=== PATIENT | male | born 1980 | race Caucasian/White ===

== ENCOUNTER 2022-09-01 11:15 | Emergency (ER) | payer OTHER ==
[~2022-09-01] VITALS: Ht 188 cm; Wt 154.2 kg
[2022-09-01 13:31] LABS: BASOPHILS ABSOLUTE AUTO 0.04 K/mm3 (0.00-0.23); BASOPHILS PERCENT AUTO 1 % (0-2); EOSINOPHILS ABSOLUTE AUTO 0.54 K/mm3 (0.00-0.68); EOSINOPHILS PERCENT AUTO 7 % (0-6); Hematocrit 41.4 % (37.0-53.0); Hemoglobin 13.9 g/dL (13.5-17.5); IMMATURE GRAN ABSOLUTE AUTO 0.03 K/mm3 (0.00-0.10); IMMATURE GRAN PERCENT AUTO 0 % (0-1); LYMPHOCYTES ABSOLUTE AUTO 2.19 K/mm3 (0.84-5.20); LYMPHOCYTES PERCENT AUTO 28 % (21-46); MONOCYTES ABSOLUTE AUTO 0.83 K/mm3 (0.16-1.47); MONOCYTES PERCENT AUTO 10 % (4-13); Mean Corpuscular HGB 28.5 pg (26.0-34.0); Mean Corpuscular HGB Conc 33.6 g/dL (31.5-36.5); Mean Corpuscular Volume 85 fL (80-100); Mean Platelet Volume 9.5 fL (9.1-12.4); NEUTROPHILS ABSOLUTE AUTO 4.32 K/mm3 (1.96-9.15); NEUTROPHILS PERCENT AUTO 54 % (41-73); Platelet Count 271 K/mm3 (150-400); RDW Coefficient Variation 13.3 % (11.7-14.2); RDW Standard Deviation 41.1 fL (35.1-46.3); Red Blood Cell Count 4.88 M/mm3 (4.30-5.90); White Blood Cell Count 7.95 K/mm3 (4.00-11.30)
[2022-09-01] MEDS ORDERED: HYDR1TAB94 PO (14:33)
== END 2022-09-01 14:53 | disposition home or self-care (01) ==
LOC: ER 11:15
PROVIDERS: Emergency Medicine
DX: R10.13 Epigastric pain (principal); F17.210 Nicotine dependence, cigarettes, uncomplicated
CPT/HCPCS: 74177; 83690; 85025; J2270; Q9967

== ENCOUNTER 2023-12-13 15:03 | Inpatient (IN) | payer OTHER ==
[~2023-12-13] VITALS: Ht 182.9 cm; Wt 176.0 kg
[~2023-12-13 15:03] MED LIST: HYDR1TAB94 PO
[2023-12-13 15:42] LABS: BASOPHILS ABSOLUTE AUTO 0.05 K/mm3 (0.00-0.23); BASOPHILS PERCENT AUTO 0 % (0-2); EOSINOPHILS ABSOLUTE AUTO 0.53 K/mm3 (0.00-0.68); EOSINOPHILS PERCENT AUTO 5 % (0-6); Hemoglobin 11.3 g/dL (13.5-17.5); IMMATURE GRAN ABSOLUTE AUTO 0.05 K/mm3 (0.00-0.10); IMMATURE GRAN PERCENT AUTO 0 % (0-1); LYMPHOCYTES ABSOLUTE AUTO 1.96 K/mm3 (0.84-5.20); LYMPHOCYTES PERCENT AUTO 18 % (21-46); MONOCYTES ABSOLUTE AUTO 1.03 K/mm3 (0.16-1.47); MONOCYTES PERCENT AUTO 9 % (4-13); Mean Corpuscular HGB 24.9 pg (26.0-34.0); Mean Corpuscular HGB Conc 31.4 g/dL (31.5-36.5); Mean Corpuscular Volume 79 fL (80-100); Mean Platelet Volume 9.2 fL (9.1-12.4); NEUTROPHILS ABSOLUTE AUTO 7.61 K/mm3 (1.96-9.15); NEUTROPHILS PERCENT AUTO 68 % (41-73); Platelet Count 324 K/mm3 (150-400); RDW Coefficient Variation 15.1 % (11.7-14.2); RDW Standard Deviation 43.5 fL (35.1-46.3); Red Blood Cell Count 4.54 M/mm3 (4.30-5.90); White Blood Cell Count 11.23 K/mm3 (4.00-11.30)
[2023-12-13 16:02] LABS: Albumin, Blood 3.3 g/dL (3.4-5.0); Albumin/Globulin Ratio 0.7 (0.8-1.8); Bilirubin, Total 0.3 mg/dL (0.1-1.0); Bun/Creatinine Ratio 13.3 (12.0-20.0); Calcium, Blood 8.4 mg/dL (8.5-10.1); Creatinine, Blood 0.9 mg/dL (0.60-1.20); Globulin, Blood 4.5 g/dL (2.2-4.0); Potassium, Blood 3.9 mmol/L (3.5-5.5); Total Protein, Blood 7.8 g/dL (6.4-8.2)
[2023-12-13] MEDS ORDERED: Acetaminophen 325 MG TABLET PO ONE (18:15)
[2023-12-13 20:25] LABS: Influenza A, PCR NEGATIVE (NEGATIVE); Influenza B, PCR NEGATIVE (NEGATIVE); Resp Syncytial Virus, PCR NEGATIVE (NEGATIVE); SARS-Cov-2 (COVID-19) PCR, MMC NEGATIVE (NEGATIVE)
[2023-12-13] MEDS ORDERED: ALBUTEROL HFA 90 MCG (21:24)
[2023-12-13] MEDS ORDERED: Acetaminophen 325 MG TABLET PO PRN (21:25)
[2023-12-13] MEDS ORDERED: Albuterol 2.5 MG/3 ML VIAL INH PRN (21:30)
[2023-12-13] MEDS ORDERED: HYDROcodone 5-APAP 325 TAB PO PRN (21:30)
[2023-12-13] MEDS ORDERED: Ondansetron HCl 2 MG / ML 2ML Vial IV PRN (21:30)
[2023-12-13] MEDS ORDERED: HYDROcodone 5-APAP 325 TAB PO ONE (22:00)
[2023-12-13] MEDS ORDERED: Furosemide 10 MG/ML 4ML Vial IV SCH (22:00)
[2023-12-13] MEDS ORDERED: ALBU90OI INH (22:01)
[2023-12-13 22:33] LABS: Thyroid Stimulating Hormone 1.49 uIU/mL (0.360-4.800)
[2023-12-13 22:51] VITALS: BP 149/111
[2023-12-13 22:57] LABS: Adenovirus Not Detected (NOT DETECT); Bordetella pertussis Not Detected (NOT DETECT); Chlamydophila pneumoniae Not Detected (NOT DETECT); Coronavirus 229E Not Detected (NOT DETECT); Coronavirus HKU1 Not Detected (NOT DETECT); Coronavirus NL63 Not Detected (NOT DETECT); Coronavirus OC43 Not Detected (NOT DETECT); Human Metapneumovirus Not Detected (NOT DETECT); Human Rhinovirus/Enterovirus Not Detected (NOT DETECT); Influenza A/2009-H1 Not Detected (NOT DETECT); Influenza A/H1 Not Detected (NOT DETECT); Influenza A/H3 Not Detected (NOT DETECT); Influenza B Not Detected (NOT DETECT); Mycoplasma pneumoniae Not Detected (NOT DETECT); Parainfluenza Virus 1 Not Detected (NOT DETECT); Parainfluenza Virus 2 Not Detected (NOT DETECT); Parainfluenza Virus 3 Not Detected (NOT DETECT); Parainfluenza Virus 4 Not Detected (NOT DETECT); Respiratory Syncytial Virus Not Detected (NOT DETECT); SARS-Cov-2 (COVID-19), BioFire Not Detected (NOT DETECT)
[2023-12-14 00:18] LABS: U Amphetamine Screen DETECTED; U Barbituate Screen Not Detected; U Benzodiazapine Screen Not Detected; U Cocaine Screen Not Detected; U Methadone Screen Not Detected; U Methamphetamine Screen DETECTED; U Opiates Screen DETECTED
[2023-12-14 00:19] LABS: U Buprenorphine Screen Not Detected; U Cannabinoids Screen Not Detected; U Oxycodone Screen Not Detected; U Phencyclidine Screen Not Detected
[2023-12-14] MEDS ORDERED: Nicotine 21 MG PATCH TOP PRN (00:40)
[2023-12-14] MEDS ORDERED: FentaNYL Citrate 50 MCG/ML 2 ML Injection IV PRN (00:40)
[2023-12-14] MEDS ORDERED: DEXTROMETHORPHAN/BENZOCAINE 1 EACH LOZENGE MT PRN (00:40)
[2023-12-14 04:08] VITALS: BP 160/92
[2023-12-14 06:58] LABS: Bun/Creatinine Ratio 12.3 (12.0-20.0); Calcium, Blood 8.7 mg/dL (8.5-10.1); Creatinine, Blood 0.81 mg/dL (0.60-1.20); Magnesium, Blood 2.3 mg/dL (1.6-2.4); Potassium, Blood 3.8 mmol/L (3.5-5.5)
[2023-12-14 07:31] VITALS: BP 156/97
--- NOTE | 2023-12-14 07:33 | NUR ---
SHIFT SUMMARY PT ARRIVED TO ROOM 341 FROM ER VIA GURNEY AROUND 2250. PT AMBULATED INDEPENDENTLY TO BR, THEN TO HOSPITAL BED. PT IS A&OX4, PLEASANT AND COOPERATIVE. HTN 149/111, HR 88, AFEBRILE, O2 91% ON 4L NC. ATTEMPTED TO WEAR CPAP, COULD NOT TOLERATE. +3 BLE EDEMA. LORENA BECOMES VERY DYSPNEIC AND TACHYPNEIC WITH ANY EXERTION, EVEN REPOSITIONING IN BED. C/O PAIN IN HIS THROAT, AND CHEST FROM COUGHING. MEDICATED WITH 5MG PO NORCO. ORDERED CEPACOL LOZENGES. PT IS A SMOKER, THIS RN SUGGESTED SMOKING CESSATION, PT IS WANTING TO, NICOTINE PATCH ORDERED FOR MORNING. PT IS INDEPENDENT TO BR. VOIDING LARGE AMOUNTS OF CLEAR, LIGHT YELLOW URINE. NO BM THIS SHIFT. ORIENTED PT TO ROOM AND CALL LIGHT. BED IN LOWEST POSITION, CALL LIGHT WITHIN REACH.
[2023-12-14] MEDS ORDERED: Enoxaparin 40 MG/0.4 ML SYR SC SCH (09:00)
[2023-12-14 10:19] LABS: Percent Saturation 6.3 % (20.0-50.0)
[2023-12-14] MEDS ORDERED: Furosemide 10 MG/ML 4ML Vial IV SCH (10:40)
[2023-12-14] MEDS ORDERED: Saline Nasal Spray 45 ML PRN (10:50)
--- NOTE | 2023-12-14 10:52 | NUR ---
dr dai rounded, tele nsr 80-90, easily sob and desats, waiting for home cpap to be brought in
[2023-12-14] MEDS ORDERED: Fluticasone 0.05% Nasal Spray SCH (11:00)
[2023-12-14] MEDS ORDERED: Ferrous Sulfate 325 MG Tab PO SCH (13:00)
[2023-12-14] MEDS ORDERED: Lidocaine 2% Viscous Soln 20 ML,Nystatin 100,000 Unit/ml Susp 20 ML,Mag Hydrox/Al Hydro... MT PRN (13:05)
[2023-12-14 13:50] LABS: Bicarbonate Venous 30.1 mmol/L (24.0-30.0); PCO2 Venous 44 mmHg (38-42); pH Blood Venous 7.46 (7.34-7.37)
[2023-12-14 13:51] LABS: Base Excess Venous 7.1 mmol/L
[2023-12-14 14:01] LABS: BASOPHILS ABSOLUTE AUTO 0.05 K/mm3 (0.00-0.23); BASOPHILS PERCENT AUTO 1 % (0-2); EOSINOPHILS ABSOLUTE AUTO 0.46 K/mm3 (0.00-0.68); EOSINOPHILS PERCENT AUTO 5 % (0-6); Hemoglobin 12.2 g/dL (13.5-17.5); IMMATURE GRAN ABSOLUTE AUTO 0.08 K/mm3 (0.00-0.10); IMMATURE GRAN PERCENT AUTO 1 % (0-1); LYMPHOCYTES ABSOLUTE AUTO 1.66 K/mm3 (0.84-5.20); LYMPHOCYTES PERCENT AUTO 16 % (21-46); MONOCYTES ABSOLUTE AUTO 0.59 K/mm3 (0.16-1.47); MONOCYTES PERCENT AUTO 6 % (4-13); Mean Corpuscular HGB 24.7 pg (26.0-34.0); Mean Corpuscular HGB Conc 31.3 g/dL (31.5-36.5); Mean Corpuscular Volume 79 fL (80-100); Mean Platelet Volume 9.1 fL (9.1-12.4); NEUTROPHILS ABSOLUTE AUTO 7.41 K/mm3 (1.96-9.15); NEUTROPHILS PERCENT AUTO 72 % (41-73); Platelet Count 317 K/mm3 (150-400); RDW Coefficient Variation 15.1 % (11.7-14.2); RDW Standard Deviation 42.5 fL (35.1-46.3); Red Blood Cell Count 4.94 M/mm3 (4.30-5.90); White Blood Cell Count 10.25 K/mm3 (4.00-11.30)
[2023-12-14 15:30] VITALS: BP 170/84
--- NOTE | 2023-12-14 16:39 | NUR ---
NO ACUTE CHANGES, CLEARLY MAKES NEEDS KNOWN, GIRLFRIEND TO BRING CPAP IN, ECHO, VENOUS DUPLEX, DONE TODAY. SOB INCREASES WITH EXCERTION, RECOVERING FROM DESATING TO THE BATHROOM IMPROVED THIS AFTER NOON, HTN, CALL LIGHT WITH IN REACH, WILL RELAY TO PM RN
[2023-12-14 19:58] VITALS: BP 165/83
[2023-12-14] MEDS ORDERED: Sennosides 8.6 MG Tab PO SCH (21:00)
[2023-12-15 03:04] VITALS: BP 172/87
--- NOTE | 2023-12-15 06:14 | NUR ---
SHIFT SUMMARY PT IS A&OX4, PLEASANT AND COOPERATIVE. VSS, HTN, ON 4L NC, HOME CPAP WITH 7L BLEED IN WHILE ASLEEP. +3 BLE EDEMA. LORENA BECOMES VERY DYSPNEIC AND TACHYPNEIC WITH ANY EXERTION, SLEPT IN RECLINER T/O NOC. C/O PAIN IN HIS THROAT, AND CHEST FROM COUGHING. MEDICATED WITH 5MG PO NORCO AND CEPACOL LOZENGES. PT IS INDEPENDENT TO BR. VOIDING LARGE AMOUNTS OF CLEAR, LIGHT YELLOW URINE. NO BM THIS SHIFT, PT FEELS CONSTIPATED. CALL LIGHT WITHIN REACH.
[2023-12-15 07:25] LABS: BASOPHILS ABSOLUTE AUTO 0.05 K/mm3 (0.00-0.23); BASOPHILS PERCENT AUTO 1 % (0-2); EOSINOPHILS ABSOLUTE AUTO 0.41 K/mm3 (0.00-0.68); EOSINOPHILS PERCENT AUTO 4 % (0-6); Hematocrit 38.4 % (37.0-53.0); IMMATURE GRAN ABSOLUTE AUTO 0.05 K/mm3 (0.00-0.10); IMMATURE GRAN PERCENT AUTO 1 % (0-1); LYMPHOCYTES PERCENT AUTO 18 % (21-46); MONOCYTES ABSOLUTE AUTO 0.76 K/mm3 (0.16-1.47); MONOCYTES PERCENT AUTO 8 % (4-13); Mean Corpuscular HGB 24.9 pg (26.0-34.0); Mean Corpuscular HGB Conc 31.3 g/dL (31.5-36.5); Mean Corpuscular Volume 80 fL (80-100); Mean Platelet Volume 8.9 fL (9.1-12.4); NEUTROPHILS ABSOLUTE AUTO 7.09 K/mm3 (1.96-9.15); NEUTROPHILS PERCENT AUTO 70 % (41-73); Platelet Count 331 K/mm3 (150-400); RDW Coefficient Variation 15.1 % (11.7-14.2); RDW Standard Deviation 43.6 fL (35.1-46.3); Red Blood Cell Count 4.82 M/mm3 (4.30-5.90); White Blood Cell Count 10.16 K/mm3 (4.00-11.30)
[2023-12-15 07:32] VITALS: BP 153/89
[2023-12-15] MEDS ORDERED: HydrALAZINE HCl 20 MG / ML 1ML Vial IV PRN (07:40)
[2023-12-15 07:56] LABS: Albumin, Blood 3.3 g/dL (3.4-5.0); Albumin/Globulin Ratio 0.7 (0.8-1.8); Bilirubin, Total 0.4 mg/dL (0.1-1.0); Bun/Creatinine Ratio 12.2 (12.0-20.0); Calcium, Blood 8.5 mg/dL (8.5-10.1); Creatinine, Blood 0.91 mg/dL (0.60-1.20); Globulin, Blood 4.5 g/dL (2.2-4.0); Total Protein, Blood 7.8 g/dL (6.4-8.2)
[2023-12-15] MEDS ORDERED: Losartan Potassium 25 MG Tab PO SCH ×2 (08:00→09:00)
[2023-12-15] MEDS ORDERED: Furosemide 10 MG/ML 4ML Vial IV SCH (09:00)
[2023-12-15] MEDS ORDERED: Vancomycin HCL 2,500 MG in NS 500 ML IV ONE (14:25)
--- NOTE | 2023-12-15 16:30 | NUR ---
SHIFT SUMMARY: PT IS A&OX4/SBA-INDEPENDENT IN THE ROOM, CALLS APPROPRIATELY. HIS BLOOD CULTURE CAME BACK POSITIVE TODAY AND WAS STARTED ON IV ANTIBIOTIC THERAPY. HE C/O BILATERAL LOWE EXT PAIN; L MORE THAN R. HE ISN'T COMPLIANT WITH CPAP; MAINTAINS APPROPRIATE O2 SATURATION ON 4 L N/C; EVEN WHILE SLEEPING. HE IS CURRENTLY AT 960 ML FOR HIS FLUIDS. PATIENT EATING CANDY, ICE CREAM, AND DRINKING SODA. HE IS VOIDING, HASN'T HAD A BOWEL MOVEMENT. HE IS CURRENT IN BED; HIGH RODRIGUEZ'S POSITION; SNORING AND O2% AT 90%. CALL LIGHT WITHIN REACH, NO SIGNS OR SYMPTOMS OF DISTRESS, PLAN OF CARE ONGOING.
--- NOTE | 2023-12-15 17:25 | NUR ---
CELIA FROM TELEMETRY CALLED REPORTING THAT PATIENT'S HR RANGE IS 40-140. NOTIFIED DR. SOLORIO
[2023-12-15 20:47] VITALS: BP 145/68
[2023-12-15] MEDS ORDERED: Vancomycin HCL 1,000 MG in NS 250 ML IV SCH (23:00)
--- NOTE | 2023-12-16 03:55 | NUR ---
SHIFT SUMMARY KIMBERLY, PT ATTEMPTED TO WEAR CPAP BUT COULD NOT TOLERATE, STATES TOO MUCH AIR BEING FORCED IN. PLACED PT ON HIGH FLOW NC AT 7L, MAINTAINGING ABOVE 90% APART FROM PERIODS OF APNEA WHERE HE BRIEFLY DROPS TO 80%. WILL WAKE PT UP AND HE RETURNS TO 90%. PT AMBULATING TO BATHROOM INDEPENDENTLY. SOB WITH EXERTION. HACKING NONPRODUCTIVE COUGH. PRN NORCO GIVEN X2. 2L FLUID RESTRICTION, COMPLIANT. ABLE TO MAKE NEEDS KNOWN. CALL LIGHT IN REACH, BED LOCKED IN LOW POSITION.
[2023-12-16 06:34] VITALS: BP 166/95
[2023-12-16 06:43] LABS: BASOPHILS ABSOLUTE AUTO 0.04 K/mm3 (0.00-0.23); BASOPHILS PERCENT AUTO 0 % (0-2); EOSINOPHILS ABSOLUTE AUTO 0.36 K/mm3 (0.00-0.68); EOSINOPHILS PERCENT AUTO 4 % (0-6); Hemoglobin 13.8 g/dL (13.5-17.5); IMMATURE GRAN ABSOLUTE AUTO 0.05 K/mm3 (0.00-0.10); IMMATURE GRAN PERCENT AUTO 1 % (0-1); LYMPHOCYTES PERCENT AUTO 22 % (21-46); MONOCYTES ABSOLUTE AUTO 0.92 K/mm3 (0.16-1.47); MONOCYTES PERCENT AUTO 9 % (4-13); Mean Corpuscular HGB 24.9 pg (26.0-34.0); Mean Corpuscular HGB Conc 31.4 g/dL (31.5-36.5); Mean Corpuscular Volume 79 fL (80-100); NEUTROPHILS ABSOLUTE AUTO 6.66 K/mm3 (1.96-9.15); NEUTROPHILS PERCENT AUTO 65 % (41-73); Platelet Count 363 K/mm3 (150-400); RDW Coefficient Variation 15.1 % (11.7-14.2); RDW Standard Deviation 43.2 fL (35.1-46.3); Red Blood Cell Count 5.55 M/mm3 (4.30-5.90); White Blood Cell Count 10.23 K/mm3 (4.00-11.30)
[2023-12-16 07:04] LABS: Albumin, Blood 3.6 g/dL (3.4-5.0); Albumin/Globulin Ratio 0.7 (0.8-1.8); Bilirubin, Total 0.5 mg/dL (0.1-1.0); Bun/Creatinine Ratio 14.2 (12.0-20.0); Creatinine, Blood 0.84 mg/dL (0.60-1.20); Globulin, Blood 5.1 g/dL (2.2-4.0); Magnesium, Blood 2.5 mg/dL (1.6-2.4); Phosphorus, Blood 4.4 mg/dL (2.5-4.9); Potassium, Blood 3.9 mmol/L (3.5-5.5); Total Protein, Blood 8.7 g/dL (6.4-8.2)
[2023-12-16 07:38] VITALS: BP 154/82
[2023-12-16] MEDS ORDERED: HyDROXyzine HCl 10 MG Tab PO PRN (12:00)
[2023-12-16 14:56] LABS: Vancomycin, Trough 10.1 ug/mL (5.0-10.0)
[2023-12-16 15:03] VITALS: BP 144/81
[2023-12-16] MEDS ORDERED: Vancomycin HCL 1,250 MG in NS 250 ML IV SCH (16:00)
[2023-12-16] MEDS ORDERED: AcetaZOLAMIDE 250 MG Tab PO ONE (16:00)
--- NOTE | 2023-12-16 17:25 | NUR ---
SHIFT SUMMARY: PT IS A&OX4/INDEPENDENT. HE MAKES HIS NEEDS KNOWN. CONTINUES TO GO FROM ALERT TO DROWSY TO ASLEEP; SNORES; NOT COMPLIANT WITH CPAP; DOES NOT TOLERATE. MAINTAINS O2 SATURATION GREATER THAN 90% WITH HIGH FLOW N/C ON 7 LITERS; IF OXYGEN IS NOT ON WHILE SLEEPING O2% WILL DROP INTO THE 80'S. PATIENT CONTINUES TO C/O PAIN IN BILATERAL EXT/KNEES. HE IS GETTING IV ANTIBIOTICS AND DIURETICS. LOWER EXT SWELLING SLIGHTLY IMPROVED, BUT NOT MUCH. HE SEEMS TO MAINTAIN HIS FLUID RESTRICTION AT 2L. HE IS IN HIS BED, CALL LIGHT WITHIN REACH, FAMILY VISITING, NO SIGNS OR SYMPTOMS OF DISTRESS, PLAN OF CARE ONGOING.
[2023-12-16 20:51] VITALS: BP 149/76
[2023-12-17 05:03] VITALS: BP 128/80
[2023-12-17 07:04] LABS: BASOPHILS ABSOLUTE AUTO 0.04 K/mm3 (0.00-0.23); BASOPHILS PERCENT AUTO 0 % (0-2); EOSINOPHILS ABSOLUTE AUTO 0.34 K/mm3 (0.00-0.68); EOSINOPHILS PERCENT AUTO 4 % (0-6); Hemoglobin 13.3 g/dL (13.5-17.5); IMMATURE GRAN ABSOLUTE AUTO 0.05 K/mm3 (0.00-0.10); IMMATURE GRAN PERCENT AUTO 1 % (0-1); LYMPHOCYTES ABSOLUTE AUTO 1.57 K/mm3 (0.84-5.20); LYMPHOCYTES PERCENT AUTO 18 % (21-46); MONOCYTES ABSOLUTE AUTO 0.83 K/mm3 (0.16-1.47); MONOCYTES PERCENT AUTO 9 % (4-13); Mean Corpuscular HGB 24.8 pg (26.0-34.0); Mean Corpuscular HGB Conc 30.2 g/dL (31.5-36.5); Mean Corpuscular Volume 82 fL (80-100); NEUTROPHILS ABSOLUTE AUTO 6.16 K/mm3 (1.96-9.15); NEUTROPHILS PERCENT AUTO 69 % (41-73); Platelet Count 340 K/mm3 (150-400); RDW Coefficient Variation 14.8 % (11.7-14.2); RDW Standard Deviation 43.9 fL (35.1-46.3); Red Blood Cell Count 5.37 M/mm3 (4.30-5.90); White Blood Cell Count 8.99 K/mm3 (4.00-11.30)
[2023-12-17 07:30] LABS: Albumin, Blood 3.5 g/dL (3.4-5.0); Albumin/Globulin Ratio 0.7 (0.8-1.8); Bilirubin, Total 0.2 mg/dL (0.1-1.0); Bun/Creatinine Ratio 17.2 (12.0-20.0); Creatinine, Blood 0.82 mg/dL (0.60-1.20); Potassium, Blood 4.2 mmol/L (3.5-5.5); Total Protein, Blood 8.5 g/dL (6.4-8.2)
--- NOTE | 2023-12-17 07:35 | NUR ---
SHIFT SUMMARY PT NONCOMPLIANT WITH CPAP. REMAINS ON 7L HF NC WITH CONTINUOUS PULSE OX MONITORING. WILL DESAT TO 80% ON ROOM AIR. COMPLAINTS OF PAIN TO LE/KNEES. NORCO PRN GIVEN X2. COMPLIANT WITH 2L FLUID RESTRICTION. DID HAVE TWO EPISODES OF URINARY URGENCY TO WHERE HE COULD NOT MAKE IT TO THE BATHROOM, EVEN THOUGH A URINAL WAS ALREADY AT BEDSIDE, INSTRUCTED PT TO USE FEMALE URINAL THIS SEEMS TO WORK BETTER WITH HIS ANATOMY AT BEDSIDE. SITTING IN RECLINER T/O NIGHT. CALL LIGHT IN REACH. ABLE TO MAKE NEEDS KNOWN
[2023-12-17 07:39] VITALS: BP 168/93
[2023-12-17] MEDS ORDERED: Furosemide 10 MG/ML 4ML Vial IV SCH (09:00)
[2023-12-17 09:39] LABS: PCO2 Venous 65.4 mmHg (38-42); pH Blood Venous 7.29 (7.34-7.37)
[2023-12-17 09:40] LABS: Base Excess Venous 4.4 mmol/L; Bicarbonate Venous 26.5 mmol/L (24.0-30.0)
--- NOTE | 2023-12-17 11:30 | NUR ---
NOTIFIED PATIENT THAT HE IS ALREADY AT 1000ML FOR HIS MORNING FLUID INTAKE; RECOMMEND THAT HIS FLUID INTAKE SLOW DOWN THEREFORE HE CAN HAVE FLUIDS FOR REST OF THE DAY AND EVENING. PATIENT VOICES UNDERSTANDING; STILL REQUESTING FLUIDS. PATIENT ALSO ADVISED TO WEAR CPAP DUE TO SLEEPING OFTEN THROUGHOUT THE DAY WITH APNEIC EPISODES AND LOW OXYGEN DESATURATIONS; PATIENT STATES THAT THE PRESSURES NEED ADJUSTED; NOTIFIED PATIENT THAT WE CANNOT ADJUST SETTINGS ON HOME EQUIPMENT AND THAT HE SHOULD TRY TO WEAR IT TO SEE IF HE WILL SHOW IMPROVEMENT IN APNEA AND VBG LEVELS. PATIENT CONTINUES TO NOT WEAR CPAP DESPITE EDUCATION.
[2023-12-17] MEDS ORDERED: AcetaZOLAMIDE 250 MG Tab PO ONE (15:00)
[2023-12-17 15:45] VITALS: BP 147/89
--- NOTE | 2023-12-17 17:41 | NUR ---
SHIFT SUMMARY: PT IS A&OX4/INDEPENDENT; CALLS APPROPRIATELY. HE TOOK A SHOWER TODAY; STATES THAT HE FEELS BETTER. USING 3 L OF N/C O2 VERSUS 7 HIGH FLOW AND DID WEAR HIS CPAP TODAY FOR 3 HOURS WHILE HE NAPPED. HIS SWELLING AND REDNESS IN HIS LOWER EXT ARE SLIGHTLY BETTER WELL. WEIGHT OBTAINED TODAY. HE IS SITTING IN THE CHAIR EATING DINNER, CALL LIGHT WITHIN REACH, NO SIGNS OR SYMPTOMS OF DISTRESS, PLAN OF CARE ONGOING.
[2023-12-17 18:36] LABS: Base Excess Venous 4.8 mmol/L; PCO2 Venous 47.5 mmHg (38-42)
[2023-12-17 19:54] VITALS: BP 128/77
--- NOTE | 2023-12-18 00:37 | NUR ---
PT TOOK OFF CPAP, DUE TO NOT TOLERATING BUT WORE FOR APPROXIMATELY 4 HOURS TONIHT. PLACED PT BACK ON 4L NC WITH HUMIDITY AND GAVE PRN ATARAX AND PRN NORCO THIS MORNING. EDUCATED PT ON NEED FOR CPAP AND HE IS AGREEABLE TO TRY CPAP AGAIN WHEN ATRAX STARTS TO TAKE EFFECT.
[2023-12-18 04:42] VITALS: BP 127/72
[2023-12-18 06:34] LABS: BASOPHILS ABSOLUTE AUTO 0.05 K/mm3 (0.00-0.23); BASOPHILS PERCENT AUTO 1 % (0-2); EOSINOPHILS ABSOLUTE AUTO 0.35 K/mm3 (0.00-0.68); EOSINOPHILS PERCENT AUTO 5 % (0-6); Hematocrit 40.3 % (37.0-53.0); Hemoglobin 12.4 g/dL (13.5-17.5); IMMATURE GRAN ABSOLUTE AUTO 0.03 K/mm3 (0.00-0.10); IMMATURE GRAN PERCENT AUTO 0 % (0-1); LYMPHOCYTES ABSOLUTE AUTO 1.41 K/mm3 (0.84-5.20); LYMPHOCYTES PERCENT AUTO 20 % (21-46); MONOCYTES ABSOLUTE AUTO 0.73 K/mm3 (0.16-1.47); MONOCYTES PERCENT AUTO 10 % (4-13); Mean Corpuscular HGB 24.8 pg (26.0-34.0); Mean Corpuscular HGB Conc 30.8 g/dL (31.5-36.5); Mean Corpuscular Volume 81 fL (80-100); Mean Platelet Volume 8.7 fL (9.1-12.4); NEUTROPHILS ABSOLUTE AUTO 4.67 K/mm3 (1.96-9.15); NEUTROPHILS PERCENT AUTO 65 % (41-73); Platelet Count 315 K/mm3 (150-400); RDW Standard Deviation 43.8 fL (35.1-46.3); Red Blood Cell Count 4.99 M/mm3 (4.30-5.90); White Blood Cell Count 7.24 K/mm3 (4.00-11.30)
[2023-12-18 06:57] LABS: Albumin, Blood 3.3 g/dL (3.4-5.0); Albumin/Globulin Ratio 0.7 (0.8-1.8); Bilirubin, Total 0.2 mg/dL (0.1-1.0); Bun/Creatinine Ratio 15.8 (12.0-20.0); Calcium, Blood 9.1 mg/dL (8.5-10.1); Creatinine, Blood 0.89 mg/dL (0.60-1.20); Globulin, Blood 4.7 g/dL (2.2-4.0); Potassium, Blood 4.1 mmol/L (3.5-5.5)
[2023-12-18 07:42] VITALS: BP 123/66
[2023-12-18 12:39] VITALS: BP 141/72
--- NOTE | 2023-12-18 13:29 | NUR ---
RN NOTE MR ZAIDI IS SITTING IN RECLINER, HE IS FREQUENTLY FALLING TO SLEEP, EYES OPEN, THEN DOZING. HE C/O ANXIETY AND WAS MEDICATED WITH ATARAX. HE WAS ENCOURAGED TO WEAR CPAP WHICH THIS MORNING HE REFUSED. HE WAS REMOVING HIS OXYGEN TO WALK TO THE BATHROOM. HE WAS STRONGLY ADVISED TO KEEP HIS OXYGEN ON, KEEP THE CONTINUOUS PULSE OX MONITOR ON. PULSE OX DROPPING TO 84-86% WHEN HE REMOVED OXYGEN. HE HAS SINCE AGREED TO KEEP OXYGEN ON AND HAS BEEN USING URINAL. HE WAS EDUCATED THAT SLEEPING WITHOUT CPAP CAN CAUSE CARDIAC DAMAGE WELL RESP EVENTS. WHILE SLEEPING WITHOUT CPAP RECOVERY COORDINATOR CALLED AND NOTIFIED OF GEOVANI EVENT TO THE 30S LASTING 14 SECONDS. HE WAS AWOKEN AND HEART RATE ELEVATED UPON AWAKENING. BP STABLE AND PT DENIED ANY CONCERNS. DR SKAGGS INFORMED OF GEOVANI EVENT. MR ZAIDI IS NOW SLEEPING IN CHAIR AGAIN, THIS TIME WITH CPAP ON. CALL LIGHT IN REACH.
--- NOTE | 2023-12-18 16:27 | NUR ---
SHIFT SUMMARY MR ZAIDI IS RESTING IN RECLINER FOR MOST OF THE DAY ON 4L NC OXYGEN, HE HAS USED CPAP FOR SHORT AMOUNT OF TIME THIS AFTERNOON, BUT HE DECLINED TO USE IT THIS MORNING. VERY SLEEPY, NODDING OFF TO SLEEP FREQUENTLY AND MID CONVERSATION. EDUCATED ON BENEFITS OF USING CPAP. ON CONTINUOUS PULSE OX. BLE EDEMA AND PAIN, GOOD UOP AFTER LASIX AND HE SEEMS MORE COMFORTABLE AFTER NORCO. ON TELEMETRY IN SR WITH SINUS GEOVANI TO 30S FOR 14 SECONDS WHILE SLEEPING EARLIER TODAY, RESOLVED WHEN HE WAS WOKEN (SEE PRIOR NOTE). CALL LIGHT IN REACH.
[2023-12-18 17:27] VITALS: BP 120/61
[2023-12-18 19:49] VITALS: BP 139/68
--- NOTE | 2023-12-19 02:50 | NUR ---
TELE CALLED TO REPORT "HANDFUL BEAT RUN" OF BRADRYCARDIA THAT DROPPED DOWN TO 38. UPON ENTERING ROOM PATIENT IS SLEEPING, HR IN THE 60'S. 3L NC ON HE HAD REFUSED CPAP USE AFTER A COUPLE HOURS USE AT START OF SHIFT. WOKE PT UP AND HR INCREASED TO 70'S. ENCOURAGED PT ON USE OF CPAP.
[2023-12-19 04:01] VITALS: BP 119/54
[2023-12-19 06:00] LABS: Bun/Creatinine Ratio 22.3 (12.0-20.0); Calcium, Blood 8.4 mg/dL (8.5-10.1); Creatinine, Blood 0.81 mg/dL (0.60-1.20); Potassium, Blood 4.5 mmol/L (3.5-5.5)
[2023-12-19 07:22] VITALS: BP 123/80
--- NOTE | 2023-12-19 07:33 | NUR ---
TELE CALLED AT APPROXIMATELY 0650 TO REPORT PATIENT HAD ABOUT 8-12 SECONDS OF BRADYCARDIA IN MID 30'S. THEN CALLED BACK A COUPLE MINUTES LATER TO REPORT UPON CLOSER VIEWING RHYTHM APPEARED TO BE IN 2ND DEGREE TYPE [address]. ATTEMPTED TO NOTIFY [address] FRY THIS MORNING BUT NO ANSWER, DAY SHIFT NURSE JOSELYN DOLAN WAS MADE AWARE AND PASSED ON PLAN OF CARE. PATIENT WAS RESTING IN RECLINER AT TIME OF TELE REPORT, JOSELYN AND Acacia WERE BOTH IN THE ROOM WHEN TELE CALLED BACK. PATIENT HR IN THE 80'S AND HAD JUST FINISHED AMBULATING BACK FROM THE BATHROOM. MILD SOB WITH EXERTION. PATIENT BACK ON CPAP AND ENCOURAGED TO LEAVE ON FOR A WHILE THIS MORNING HE WILL TAKE OFF CPAP AND NOT REPLACE WITH 3L NC. PATIENT EDUCATED ON NEED FOR OXYGEN, HE DROPS TO LOW TO MID 80'S ON ROOM AIR.
[2023-12-19 10:45] LABS: BASOPHILS ABSOLUTE AUTO 0.04 K/mm3 (0.00-0.23); BASOPHILS PERCENT AUTO 1 % (0-2); EOSINOPHILS ABSOLUTE AUTO 0.25 K/mm3 (0.00-0.68); EOSINOPHILS PERCENT AUTO 3 % (0-6); Hematocrit 40.1 % (37.0-53.0); Hemoglobin 12.4 g/dL (13.5-17.5); IMMATURE GRAN ABSOLUTE AUTO 0.03 K/mm3 (0.00-0.10); IMMATURE GRAN PERCENT AUTO 0 % (0-1); LYMPHOCYTES ABSOLUTE AUTO 1.36 K/mm3 (0.84-5.20); LYMPHOCYTES PERCENT AUTO 18 % (21-46); MONOCYTES ABSOLUTE AUTO 0.62 K/mm3 (0.16-1.47); MONOCYTES PERCENT AUTO 8 % (4-13); Mean Corpuscular HGB 24.8 pg (26.0-34.0); Mean Corpuscular HGB Conc 30.9 g/dL (31.5-36.5); Mean Corpuscular Volume 80 fL (80-100); Mean Platelet Volume 9.4 fL (9.1-12.4); NEUTROPHILS PERCENT AUTO 69 % (41-73); Platelet Count 341 K/mm3 (150-400); RDW Coefficient Variation 15.2 % (11.7-14.2); RDW Standard Deviation 43.9 fL (35.1-46.3); Red Blood Cell Count 5.01 M/mm3 (4.30-5.90)
[2023-12-19 10:53] LABS: Stool Occult Blood Guaiac 1 Neg (Neg)
[2023-12-19 15:10] VITALS: BP 125/72
[2023-12-19] MEDS ORDERED: Acetaminophen650 M1 PO (15:54)
[2023-12-19] MEDS ORDERED: Flonase 0.05% N16 GM (15:55)
[2023-12-19] MEDS ORDERED: LOSA25 PO (15:56)
[2023-12-19] MEDS ORDERED: FURO20 PO (15:56)
[2023-12-19] MEDS ORDERED: Norco 5-325 Ta1 EACH PO (15:57)
[2023-12-19] MEDS ORDERED: NICO21TP TOP (15:57)
[2023-12-21] MEDS ORDERED: BUME1 PO (16:59)
== END 2023-12-19 18:45 | disposition home health service (06) | DRG 189 ==
LOC: ER 15:03 → MEDS 15:04
PROVIDERS: Emergency Medicine; Internal Medicine; Nurse Practitioner Acute Care; Physician Assistant; ADMIT Internal Medicine
DX: J96.01 Acute respiratory failure with hypoxia (principal); E66.2 Morbid (severe) obesity with alveolar hypoventilation; Z68.42 Body mass index [BMI] 45.0-49.9, adult; R78.81 Bacteremia; I11.0 Hypertensive heart disease with heart failure; K76.0 Fatty (change of) liver, not elsewhere classified; F17.210 Nicotine dependence, cigarettes, uncomplicated; I50.9 Heart failure, unspecified; F15.10 Other stimulant abuse, uncomplicated; K21.9 Gastro-esophageal reflux disease without esophagitis; J45.20 Mild intermittent asthma, uncomplicated; F12.10 Cannabis abuse, uncomplicated; E87.70 Fluid overload, unspecified; D50.9 Iron deficiency anemia, unspecified; Z79.51 Long term (current) use of inhaled steroids; Z99.89 Dependence on other enabling machines and devices
CPT/HCPCS: 0202U; 0241U; 36415; 71046; 71260; 80048; 80053; 80202; 82272; 82728; 82803; 83036; 83540; 83550; 83605; 83735; 83880; 84100; 84145; 84443; 84484; 85025; 85379; 87040; 93005; 93010; 93971; 94640; 94660; 94664; 94761; 94762; 96372; 96374; 96376; 99285-25; A9270; C8929; G0378; J1650; J1940; J3370; J7040; J7050; Q9957; Q9967

== ENCOUNTER 2023-12-22 20:25 | Emergency (ER) | payer OTHER ==
[~2023-12-22] VITALS: Ht 177.8 cm; Wt 172.4 kg
[~2023-12-22 20:25] MED LIST changes: +ALBU90OI INH; +ALBUTEROL HFA 90 MCG; +Acetaminophen650 M1 PO; +BUME1 PO; +FURO20 PO; +Flonase 0.05% N16 GM; +LOSA25 PO; +NICO21TP TOP; +Norco 5-325 Ta1 EACH PO
[2023-12-22] MEDS ORDERED: HYDROcodone 5-APAP 325 TAB PO ONE (21:45)
[2023-12-22 21:51] VITALS: BP 107/58
[2023-12-22] MEDS ORDERED: CEPH500 PO (22:24)
== END 2023-12-22 22:46 | disposition home or self-care (01) ==
LOC: ER 20:25
DX: S93.105A Unspecified dislocation of left toe(s), initial encounter (principal); S91.115A Laceration without foreign body of left lesser toe(s) without damage to nail, initial encounter; J45.909 Unspecified asthma, uncomplicated; I11.9 Hypertensive heart disease without heart failure; I50.9 Heart failure, unspecified; G47.33 Obstructive sleep apnea (adult) (pediatric); E66.01 Morbid (severe) obesity due to excess calories; F17.210 Nicotine dependence, cigarettes, uncomplicated; W18.30XA Fall on same level, unspecified, initial encounter; Z79.51 Long term (current) use of inhaled steroids; Z79.899 Other long term (current) drug therapy
CPT/HCPCS: 12001; 73610; 73630; 99283-25; A9270